=== PATIENT | female | born 1990 | race Caucasian/White ===

== ENCOUNTER 2022-02-15 15:05 | Emergency (ER) | payer MEDICAID ==
[~2022-02-15] VITALS: Ht 165.1 cm; Wt 53.5 kg
[2022-02-15 15:23] VITALS: BP 110/64
--- NOTE | 2022-02-15 18:15 | NUR ---
covid and flu swabbed done. 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
[2022-02-15] MEDS ORDERED: IBUPROFEN 600 MG TABLET ONE (18:24)
--- NOTE | 2022-02-15 18:28 | NUR ---
Patient discharged to home in stable condition. Written and verbal after care instructions given. Patient verbalizes understanding of instruction.
[2022-02-15] MEDS ORDERED: IBUPROFEN 600 MG TABLET PO ONE (18:30)
== END 2022-02-15 18:28 | disposition home or self-care (01) ==
LOC: ER 15:16
DX: B34.9 Viral infection, unspecified (principal); Z20.822 Contact with and (suspected) exposure to COVID-19; Z88.5 Allergy status to narcotic agent
CPT/HCPCS: 99284; 71045; 87804; U0003; C9803